=== PATIENT | female | born 1940 | race Caucasian/White ===

== ENCOUNTER → 2017-05-11 | Outpatient (CLI) | payer OTHER ==
[2015-04-23 10:37] VITALS: BP 104/60
[~2017-05-11] MED LIST: ALLO100T PO; APIX5TAB PO; CALC500T30 PO; CEPH-264 PO; CHOL2000 PO; DILT60TA3 PO; Diltiazem Hcl PO; ERGO500027 PO; FISH1CAP PO; FLUT1DIS IH; FLUT1DIS5 IH; GLIP5TAB10 PO; IOHEXOL 240 MG/ML 50ML VIAL. PO ONE; IPRA0.2S5 NEB; LEVO500T59 PO; LEVO500T8 PO; LIDO30CR TP; LOSA50TA6 PO; OMEG500C PO; ONDA4TAB11 PO; ONDA8TAB9 PO; PRAV40TA2 PO; PRED50TA PO
--- NOTE | 2017-05-11 11:19 | RAD ---
CT chest, abdomen and pelvis without IV contrast Indication: Restaging of trauma. Technique: CT chest, abdomen and pelvis without IV contrast with 30 mL of Omnipaque 240 by mouth contrast with multiplanar reformats. Comparison: Previous study from 04/26/2016 Findings: Limited study due to lack of IV contrast. Clear neck base. Heart is mildly enlarged in in size. Coronary artery disease noted. No pericardial or pleural effusion. Trace amount of fluid is seen in the aortic recess. No axillary, mediastinal or hilar lymph nodes. Stable triangular opacity seen in the right middle lobe most likely intraparenchymal lymph node. Scarring seen in the right lower lobe. Stable 3 mm nodule in the right lower lobe (series 2 image 49). Stable 2 mm nodule in the left lower lobe (series 2 image 45). 3 mm nodule in the left lower lobe (series 2 image 40), new. Scarring seen within medial aspect of the left lower lobe (series 2 image 49). No suspicious bony lesions in the thorax. Diffuse atherosclerotic disease noted of the aortic arch and descending thoracic aorta. CT abdomen and pelvis: Liver is not enlarged. Prominent Hayes's lobe noted. Spleen is not enlarged. No radiopaque gallstones. Noncontrast appearance of the pancreas is within normal limits. Adrenal glands show no nodularity. No nephrolithiasis or hydronephrosis. No pathologically enlarged retroperitoneal, pelvic or inguinal adenopathy. No bowel obstruction. Sigmoid diverticulosis. Uterus is anteverted. No solid adnexal lesions. No free pelvic fluid. Bladder show no focal stones. No suspicious bony lesion. Degenerative disc disease noted at L2-L3. Diffuse atherosclerotic disease of abdominal aorta and bilateral iliac arteries. Small sliding hiatal hernia. Impression: Limited study due to lack of IV contrast. 1. No gilbert mass in the chest, abdomen or pelvis. 2. Multiple sub-3 mm nodules as described above, some are stable. CT chest in 6-12 months recommended. PQRS Compliance Statement: One or more of the following individualized dose reduction techniques were utilized for this examination: 1. Automated exposure control 2. Adjustment of the mA and/or kV according to patient size 3. Use of iterative reconstruction technique
== END | disposition home or self-care (01) ==
LOC: CT 08:43
PROVIDERS: ATTEND Internal Medicine Hematology & Oncology
DX: M51.36 Other intervertebral disc degeneration, lumbar region (principal); I70.0 Atherosclerosis of aorta; I25.10 Atherosclerotic heart disease of native coronary artery without angina pectoris; R91.8 Other nonspecific abnormal finding of lung field
CPT/HCPCS: 71250; 74176; Q9966

== ENCOUNTER → 2018-05-11 | Outpatient (CLI) | payer OTHER ==
[2015-04-23 10:37] VITALS: BP 104/60
[~2018-05-11] MED LIST changes: -LOSA50TA6 PO; +LOSA50TA7 PO
--- NOTE | 2018-05-11 14:09 | RAD ---
CT of the abdomen and pelvis without contrast 05/11/2018 comparison study: CT of the abdomen and pelvis without contrast May 11, 2017 INDICATION: History diffuse B cell lymphoma. Technique: Multidetector CT imaging of the abdomen and pelvis is obtained without the administration of IV contrast. FINDINGS: Mild areas of scarring are seen in the lung bases, similar to prior studies. Small noncalcified nodular opacities are seen in the left lower lobe, unchanged from prior study. Calcified granuloma in the left lower lobe is also unchanged. Small focus of calcification the liver is unchanged. Liver is otherwise unremarkable noncontrast enhanced appearance. The gallbladder is unremarkable. Spleen is normal in size and otherwise unremarkable noncontrast enhanced appearance. The adrenal glands are unremarkable in appearance. The right kidney is mildly atrophic. Kidneys are otherwise grossly unremarkable. Pancreas is unremarkable. Diffuse atherosclerotic vascular disease is noted. A small contrast-filled hiatal hernia is seen. There is no bowel obstruction. No evidence of acute inflammatory change involving visualized bowel is identified. Mild colonic diverticulosis is noted. The bladder is poorly visualized. No concerning abdominal or pelvic adenopathy is identified. No acute osseous changes are seen. IMPRESSION: 1. No evidence of acute intra-abdominal abnormality 2. Stable small noncalcified lung nodules in the left lower lobe. Stability over several years suggests a benign etiology. CT DOSING PQRS STATEMENT: One or more of the following individualized dose reduction techniques were utilized for this examination: 1. Automated exposure control 2. Adjustment of the mA and/or kV according to patient size 3. Use of iterative reconstruction technique Electronically signed by: Weston Boucher MD (05/11/2018 2:05 PM) [id number]
== END | disposition home or self-care (01) ==
LOC: CT 09:36
PROVIDERS: ATTEND Internal Medicine Hematology & Oncology
DX: C83.30 Diffuse large B-cell lymphoma, unspecified site (principal)
CPT/HCPCS: 74176; Q9966